=== PATIENT | male | born 1950 | race Two or more races ===

== ENCOUNTER 2022-01-10 12:00 | Inpatient (IN) | payer OTHER ==
[~2022-01-10] VITALS: Ht 170.2 cm; Wt 72.6 kg
[2022-01-10] MEDS ORDERED: GABAPENT PO (15:12)
[2022-01-15] MEDS ORDERED: GABAPENTIN300 M2 (08:22)
[2022-01-15] MEDS ORDERED: METFORMIN HCL500 M4 (08:23)
== END 2022-01-17 12:58 | disposition home or self-care (01) | DRG 331 ==
LOC: O/R 01-14 07:44 → SURH 01-14 07:44 → SURG 01-14 10:45 → SURH 01-14 20:42
PROVIDERS: ADMIT Colon & Rectal Surgery; ATTEND Colon & Rectal Surgery
PROC: 0DBP4ZZ Excision of Rectum, Percutaneous Endoscopic Approach (ICD-10-PCS; 2022-01-14)
PROC: 0DTN4ZZ Resection of Sigmoid Colon, Percutaneous Endoscopic Approach (ICD-10-PCS; 2022-01-14)
PROC: 0WQF4ZZ Repair Abdominal Wall, Percutaneous Endoscopic Approach (ICD-10-PCS; 2022-01-14)
PROC: 0DJD8ZZ Inspection of Lower Intestinal Tract, Via Natural or Artificial Opening Endoscopic (ICD-10-PCS; 2022-01-14)
PROC: 0DBE4ZZ Excision of Large Intestine, Percutaneous Endoscopic Approach (ICD-10-PCS; principal; 2022-01-14 10:45)
PROC: 02HV33Z Insertion of Infusion Device into Superior Vena Cava, Percutaneous Approach (ICD-10-PCS; 2022-01-15)
DX: K57.32 Diverticulitis of large intestine without perforation or abscess without bleeding (principal); K43.2 Incisional hernia without obstruction or gangrene; Z43.3 Encounter for attention to colostomy; K66.0 Peritoneal adhesions (postprocedural) (postinfection); I11.9 Hypertensive heart disease without heart failure; Z20.822 Contact with and (suspected) exposure to COVID-19; E11.9 Type 2 diabetes mellitus without complications